=== PATIENT | male | born 1945 | race Caucasian/White ===

== ENCOUNTER → 2016-09-16 | Day surgery (SDC) | payer OTHER ==
[2016-09-06 14:38] VITALS: Ht 177.8 cm; Wt 93.2 kg
[~2016-09-16] VITALS: Ht 177.8 cm; Wt 93.2 kg
[~2016-09-16] MED LIST: ALLO300T2 PO; ALPR-411 PO; ATOR-54 PO; COEN75CA PO; COLC0.6T54 PO; FRS/40 PO; GLC/500 PO; GLIM1TAB2 PO; INDO50CA97 PO; LIDOCAINE HCL 2% 2 ML VIAL (20MG/ML) ONE; METO100T14 PO; MIDAZOLAM HCL 1 MG/ML 2ML VIAL ONE; NXM/40 PO; OMEG10007 PO; ONDANSETRON INJ 2 MG/ML 2 ML VIAL ONE; PROPOFOL IV EMULSION 10 MG/ML 20 ML VIAL IV ONE; RAMI10CA PO; SODIUM CHLORIDE 0.9% 500ML 500 ML IV ONE; SUCR1TAB29 PO; TAMS0.4C38 PO; TRAZ50TA35 PO
[2016-09-16 14:30] VITALS: TEMP 36.5
--- NOTE | 2016-09-16 15:05 | Endo History and Physical ---
History & Physical Date of Service: Sep 16, 2016. Chief Complaint: EPIGASTRIC PAIN Referring Physician: DR. 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 ) Hx Urinary Tract Surgery: Yes (MULTIPLE CYSTOCOPIES) Family History None Social History Smoking Status: Former Smoker Hx Substance Use: No Hx Alcohol Use: Yes (2-3 DRINKS/WEEK) Allergies Coded Allergies: No Known Allergies (Verified , 09/16/16) Current Medications Reported Home Medications Medications Dose Route/Sig Max Daily Dose Days Date Category Dose Instructions Xanax (Alprazolam) 0.5 Mg Tab 0.5 Mg PO HS PRN 09/06/16 Reported Indocin (Indomethacin) 50 Mg Cap 50 Mg PO TID PRN 09/06/16 Reported WITH FOOD UNTIL PAIN RESOLVES Colchicine 0.6 Mg Tab 0.6 Mg PO DAILY PRN 09/06/16 Reported Co Q-10 (Coenzyme Q10 (Ubidecarenone)) 75 Mg Cap 1 Cap PO QAM 09/06/16 Reported [place]-3 (Fish Oil) 1 Ea Cap 1 Cap PO QAM 09/06/16 Reported Lipitor (Atorvastatin) 20 Mg Tab 20 Mg PO QAM 09/06/16 Reported Lasix (Furosemide) 40 Mg Tab 40 Mg PO Q2D 09/06/16 Reported Ramipril 10 Mg Cap 1 Cap PO QAM 09/06/16 Reported Carafate (Sucralfate) 1 Gm Tab 1 Gm PO QID PRN 09/06/16 Reported Flomax (Tamsulosin Hcl) 0.4 Mg Cap 0.4 Mg PO HS 09/06/16 Reported Trazodone (Trazodone HCl) 50 Mg Tab 2 Tabs PO HS 09/06/16 Reported Zyloprim (Allopurinol) 300 Mg Tab 300 Mg PO HS 09/06/16 Reported Lopressor (Metoprolol Tartrate) 100 Mg Tab 100 Mg PO BID 09/06/16 Reported Glimepiride 1 Mg Tab 1 Tab PO BID 09/06/16 Reported Glucophage (Metformin Hcl) 500 Mg Tab 500 Mg PO QID 09/06/16 Reported Nexium (Esomeprazole Magnesium) 40 Mg Capcr 40 Mg PO QAM 09/06/16 Reported Vital Signs Weight (Kilograms): 93.18 Height (Feet): 5 Height (Inches): 10 Date Time Temp Pulse Resp B/P Pulse Ox O2 Delivery O2 Flow Rate FiO2 09/16/16 14:30 36.5 47 20 172/80 97 Room Air Physical Exam AAO x3 Nl s1s2 Lungs CTA Abd soft NT/ND + BS - CCE Assessment and Plan EGD
--- NOTE | 2016-09-16 15:29 | Discharge Instructions ---
Endoscopy Patient Instructions Date / Procedure(s) Performed Sep 16, 2016. EGD Allergy Information Coded Allergies: No Known Allergies (Verified , 09/16/16) Discharge Date / Findings Sep 16, 2016. Normal EGD Medication Instructions Stopped Medication(s): METFORMIN Restart Stopped Medication(s): Reported Home Medications Medications Dose Route/Sig Max Daily Dose Days Date Category Dose Instructions Xanax (Alprazolam) 0.5 Mg Tab 0.5 Mg PO HS PRN 09/06/16 Reported Indocin (Indomethacin) 50 Mg Cap 50 Mg PO TID PRN 09/06/16 Reported WITH FOOD UNTIL PAIN RESOLVES Colchicine 0.6 Mg Tab 0.6 Mg PO DAILY PRN 09/06/16 Reported Co Q-10 (Coenzyme Q10 (Ubidecarenone)) 75 Mg Cap 1 Cap PO QAM 09/06/16 Reported [place]-3 (Fish Oil) 1 Ea Cap 1 Cap PO QAM 09/06/16 Reported Lipitor (Atorvastatin) 20 Mg Tab 20 Mg PO QAM 09/06/16 Reported Lasix (Furosemide) 40 Mg Tab 40 Mg PO Q2D 09/06/16 Reported Ramipril 10 Mg Cap 1 Cap PO QAM 09/06/16 Reported Carafate (Sucralfate) 1 Gm Tab 1 Gm PO QID PRN 09/06/16 Reported Flomax (Tamsulosin Hcl) 0.4 Mg Cap 0.4 Mg PO HS 09/06/16 Reported Trazodone (Trazodone HCl) 50 Mg Tab 2 Tabs PO HS 09/06/16 Reported Zyloprim (Allopurinol) 300 Mg Tab 300 Mg PO HS 09/06/16 Reported Lopressor (Metoprolol Tartrate) 100 Mg Tab 100 Mg PO BID 09/06/16 Reported Glimepiride 1 Mg Tab 1 Tab PO BID 09/06/16 Reported Glucophage (Metformin Hcl) 500 Mg Tab 500 Mg PO QID 09/06/16 Reported Nexium (Esomeprazole Magnesium) 40 Mg Capcr 40 Mg PO QAM 09/06/16 Reported Reported Home Medications Medications Dose Route/Sig Max Daily Dose Days Date Category Dose Instructions Xanax (Alprazolam) 0.5 Mg Tab 0.5 Mg PO HS PRN 09/06/16 Reported Indocin (Indomethacin) 50 Mg Cap 50 Mg PO TID PRN 09/06/16 Reported WITH FOOD UNTIL PAIN RESOLVES Colchicine 0.6 Mg Tab 0.6 Mg PO DAILY PRN 09/06/16 Reported Co Q-10 (Coenzyme Q10 (Ubidecarenone)) 75 Mg Cap 1 Cap PO QAM 09/06/16 Reported [place]-3 (Fish Oil) 1 Ea Cap 1 Cap PO QAM 09/06/16 Reported Lipitor (Atorvastatin) 20 Mg Tab 20 Mg PO QAM 09/06/16 Reported Lasix (Furosemide) 40 Mg Tab 40 Mg PO Q2D 09/06/16 Reported Ramipril 10 Mg Cap 1 Cap PO QAM 09/06/16 Reported Carafate (Sucralfate) 1 Gm Tab 1 Gm PO QID PRN 09/06/16 Reported Flomax (Tamsulosin Hcl) 0.4 Mg Cap 0.4 Mg PO HS 09/06/16 Reported Trazodone (Trazodone HCl) 50 Mg Tab 2 Tabs PO HS 09/06/16 Reported Zyloprim (Allopurinol) 300 Mg Tab 300 Mg PO HS 09/06/16 Reported Lopressor (Metoprolol Tartrate) 100 Mg Tab 100 Mg PO BID 09/06/16 Reported Glimepiride 1 Mg Tab 1 Tab PO BID 09/06/16 Reported Glucophage (Metformin Hcl) 500 Mg Tab 500 Mg PO QID 09/06/16 Reported Nexium (Esomeprazole Magnesium) 40 Mg Capcr 40 Mg PO QAM 09/06/16 Reported Provider Instructions Activity Restrictions - No exercising or heavy lifting for 24 hours. - Do not drink alcohol the day of the procedure. - Do not drive a car or operate machinery until the day after the procedure. - Do not make any important decisions or sign important papers in 24 hours after the procedure. Following Day: - Return to full activity which may include returning to work/school. Diet Start your diet with liquids and light foods (jello, soup, juice, toast). Then eat your usual diet if not nauseated. Treatment For Common After Affects For mild abdominal pain, bloating, or excessive gas: - Rest - Eat lightly - Lie on right side Follow-Up Information Follow-up with DR. THAYER as scheduled Anesthesia Information What You Should Know You have had a procedure that required some medicine to reduce anxiety and discomfort. This treatment is called moderate sedation. After receiving the treatment, you may be sleepy, but you will be able to breathe on your own. The effects of the treatment may last for several hours. Follow these instructions along with Activity/Diet recommendations noted above: * Do NOT do anything where dizziness or clumsiness would be dangerous. * Rest quietly at home today, then you can be up and about tomorrow. * Have a responsible person stay with you the rest of today. * You may have had an I.V. today. If so, you may take the dressing off later today. Recommendations Call your doctor if: * Trouble breathing * Continuous vomiting for more than 24 hours * Temperature above 101 degrees * Severe abdominal pain or bloating * Pain not relieved by pain medicine ordered * There is increased drainage or redness from any incision * A large amount of rectal bleeding greater than 2-3 tablespoons. (If you had a polyp/s removed or have hemorrhoids, a small amount of blood - from the rectum is to be expected.) * You have any unanswered questions or concerns. IN THE EVENT OF A SERIOUS EMERGENCY, GO TO THE NEAREST EMERGENCY ROOM Your discharge instructions were prepared by provider Rustam Charles. Patient Instructions Signature Page Jaspal Pope Patient (or Guardian) Signature/Date: I have read and understand the instructions given to me by my caregivers. Caregiver/RN/Doctor Signature/Date: The above-named patient and/or guardian has received patient instructions on this date. + Original Patient Signature Page (only) stays with chart. Please make copy for patient.
--- NOTE | 2016-09-16 15:35 | GI REPORT ---
Procedure Date: 09/16/2016 2:50 PM Procedure: Upper GI endoscopy Indications: Epigastric abdominal pain, Epigastric abdominal distress Medicines: Propofol per Anesthesia Complications: No immediate complications. Estimated blood loss: Minimal. Estimated Blood Loss: Estimated blood loss was minimal. Procedure: Pre-Anesthesia Assessment: - Prior to the procedure, a History and Physical was performed, and patient medications and allergies were reviewed. The patient's tolerance of previous anesthesia was also reviewed. The risks and benefits of the procedure and the sedation options and risks were discussed with the patient. All questions were answered, and informed consent was obtained. Prior Anticoagulants: The patient has taken no previous anticoagulant or antiplatelet agents. ASA Grade Assessment: III - A patient with severe systemic disease. After reviewing the risks and benefits, the patient was deemed in satisfactory condition to undergo the procedure. After obtaining informed consent, the endoscope was passed under direct vision. Throughout the procedure, the patient's blood pressure, pulse, and oxygen saturations were monitored continuously. The scope was introduced through the mouth, and advanced to the second part of duodenum. The upper GI endoscopy was accomplished without difficulty. The patient tolerated the procedure well. Findings: The examined esophagus was normal. The entire examined stomach was normal. The gastric body and gastric antrum were normal. Biopsies were taken with a cold forceps for histology. The examined duodenum was normal. Biopsies for histology were taken with a cold forceps for evaluation of celiac disease. Estimated blood loss was minimal. Verification of patient identification for the specimen was done by the physician and library acquisitions technician using the patient's name and medical record number. 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 Impression: - Normal esophagus. - Normal stomach. - Normal gastric body and antrum. Biopsied. - Normal examined duodenum. Biopsied. Recommendation: - Discharge patient to home (ambulatory). - Patient has a contact number available for emergencies. The signs and symptoms of potential delayed complications were discussed with the patient. Return to normal activities tomorrow. Written discharge instructions were provided to the patient. - Resume regular diet. - Await pathology results. - Return to referring physician as previously scheduled. MD Rustam Avila MD 09/16/2016 3:33:43 PM This report has been signed electronically. Note Initiated On: 09/16/2016 2:50 PM I attest to the content of the Intraoperative Record and orders documented therein, exceptions below
--- NOTE | 2016-09-16 15:44 | Anesthesiology Progress Note ---
Anesthesia Post Op Note Date & Time Sep 16, 2016 at 15:43 Vital Signs Pain Intensity: 0 Vital Signs Past 12 Hours Date Time Temp Pulse Resp B/P Pulse Ox O2 Delivery O2 Flow Rate FiO2 09/16/16 15:28 57 16 134/78 96 Nasal Cannula 4 09/16/16 14:30 36.5 47 20 172/80 97 Room Air Notes Mental Status: alert / awake / arousable, participated in evaluation Pt Amnestic to Procedure: Yes Nausea / Vomiting: adequately controlled Pain: adequately controlled Airway Patency, RR, SpO2: stable & adequate BP & HR: stable & adequate Hydration State: stable & adequate Anesthetic Complications: no major complications apparent
[2016-09-16 15:59] VITALS: BP 138/80; PULSE 54; O2SAT 97
== END | disposition home or self-care (01) ==
LOC: C.GI 14:08
PROVIDERS: ATTEND Internal Medicine Gastroenterology
DX: R19.7 Diarrhea, unspecified (principal); R10.13 Epigastric pain; Z87.891 Personal history of nicotine dependence; Z98.890 Other specified postprocedural states